=== PATIENT | male | born 1985 | race Two or more races ===

== ENCOUNTER 2016-10-29 00:59 | Inpatient (IN) | payer SELFPAY ==
[2016-10-29] VITALS (7 sets, daily range): BP systolic 105–147; BP diastolic 60–91
[~2016-10-29] VITALS: Ht 160 cm; Wt 73.7 kg
[2016-10-29] MEDS ORDERED: IV NORMAL SALINE 1000ML BAG 1,000 ML IV SCH (01:47)
[2016-10-29 01:58] LABS: BASO % 0 % (0-3); EOS % 2 % (0-3); HEMATOCRIT 46.8 % (39.0-53.0); HEMOGLOBIN 15.6 g/dL (13.0-17.5); LYMPH # 2.6 x10^3/uL (1.0-4.8); LYMPH % 21 % (24-48); MEAN CORPUSCULAR HEMOGLOBIN 30 pg (25-35); MEAN CORPUSCULAR HGB CONC 33 g/dL (31-37); MEAN CORPUSCULAR VOLUME 90 fL (79-100); MONO % 4 % (0-9); NEUT % 72 % (31-73); PLATELET COUNT 170 x10^3/uL (140-400); RED BLOOD COUNT 5.21 x10^6/uL (4.30-5.70); RED CELL DISTRIBUTION WIDTH 13.3 % (11.5-14.5)
[2016-10-29] MEDS ORDERED: fentaNYL PF VIAL 100 MCG/2 ML VIAL IV PRN ×3 (02:00→13:15)
[2016-10-29] MEDS ORDERED: ONDANSETRON PF 4 MG/2 ML VIAL. IV ONE (02:00)
[2016-10-29] MEDS ORDERED: LIDO:MAALOX:DONNATAL 1:1:1 15 ML SINGLE DOSE SWSW ONE (02:00)
[2016-10-29 02:11] LABS: CALCIUM 9.2 mg/dL (8.5-10.1); CREATININE 0.8 mg/dL (0.7-1.3); POTASSIUM 3.4 mmol/L (3.5-5.1)
[2016-10-29 02:15] LABS: ALBUMIN 4.1 g/dL (3.4-5.0); ALBUMIN/GLOBULIN RATIO 1.1 (1.0-1.7); TOTAL BILIRUBIN 0.3 mg/dL (0.2-1.0); TOTAL PROTEIN 7.7 g/dL (6.4-8.2)
[2016-10-29 02:43] LABS: BILIRUBIN,URINE NEGATIVE (NEG); GLUCOSE,URINE NEGATIVE (NEG); NITRITE,URINE NEGATIVE (NEG); PROTEIN,URINE NEGATIVE (NEG-TRACE)
[2016-10-29 02:58] LABS: BACTERIA,URINE 0 /HPF (0-FEW); RBC,URINE 0 /HPF (0-2); SQUAMOUS EPITHELIAL CELL,UR OCC /LPF; WBC,URINE OCC /HPF (0-4)
[2016-10-29] MEDS ORDERED: IOHEXOL 300 MG/ML 75 ML VIAL IV ONE (03:15)
[2016-10-29] MEDS ORDERED: CONTRAST GIVEN MC PRN (03:15)
--- NOTE | 2016-10-29 04:15 | RAD ---
PQRS Compliance Statement: One or more of the following individualized dose reduction techniques were utilized for this examination: 1. Automated exposure control 2. Adjustment of the mA and/or kV according to patient size 3. Use of iterative reconstruction technique CT ABD PELV W/ IV CONTRST ONLY Clinical Indication: abdomen pain with guarding in epigastric and RUQ Comparison: None. Technique: Helical CT imaging of the abdomen and pelvis is performed after 75 cc Omnipaque 300 IV contrast. Oral contrast not given. Findings: There is moderate bilateral lower lobe dependent atelectasis. Cardiac size normal. Liver, spleen, pancreas, adrenal glands, and abdominal aorta are normal. Cholelithiasis. There is trace pericholecystic fluid. No gallbladder wall thickening. Kidneys are normal. Evaluation of bowel may be limited without oral contrast. No obvious abnormality of the stomach. No dilated small bowel. Mild diverticulosis of the descending colon without inflammation. The appendix is normal. Retroaortic left renal vein. Urinary bladder is normal. Prostate size normal. No pelvic free fluid. No acute bone abnormality. IMPRESSION: 1. Cholelithiasis. Trace pericholecystic fluid. Suggest further evaluation with right upper quadrant ultrasound. 2. The appendix is normal. 3. Moderate bilateral lower lobe dependent atelectasis. Electronically signed by: Bolivar De Dios MD (10/29/2016 4:12 AM) [facility]
--- NOTE | 2016-10-29 04:32 | PHYS DOC ---
Past Medical History Past Medical History: No Pertinent History Past Surgical History: No Surgical History Alcohol Use: None Drug Use: None Adult General Chief Complaint Chief Complaint: ABDOMINAL PAIN [facility] HPI Patient is a 31 year old male who presents with sudden onset upper abdominal pain. Patient states that his pain came on very severe and sudden. Patient states that his pain earlier was 10 out of 10. Patient states that his symptoms started approximately 2 hours prior to arrival. Patient states that his pain has been colicky. Agent has not taken any medications to help with his symptoms at this time. Patient denies any fevers. Patient has had associated nausea with his symptoms. Patient denies any significant medical or surgical history. Patient states that he is unable to walk because of the severity of his pain. Patient states that the pain is in his epigastric area and radiates towards his right upper quadrant. Review of Systems Review of Systems Constitutional: Denies fever or chills [] Eyes: Denies change in visual acuity, redness, or eye pain [] HENT: Denies nasal congestion or sore throat [] Respiratory: Denies cough or shortness of breath [] Cardiovascular: No additional information not addressed in HPI [] GI: Denies abdominal pain, nausea, vomiting, bloody stools or diarrhea [] : Denies dysuria or hematuria [] Musculoskeletal: Denies back pain or joint pain [] Integument: Denies rash or skin lesions [] Neurologic: Denies headache, focal weakness or sensory changes [] Endocrine: Denies polyuria or polydipsia [] Current Medications Current Medications Current Medications Medications (Trade) Dose Ordered Sig/Kishor Start Time Stop Time Status Last Admin Dose Admin Fentanyl Citrate (Fentanyl 2ml Vial) 50 mcg PRN Q15MIN PRN 10/29/16 02:00 10/30/16 01:59 10/29/16 01:57 50 MCG Info (Do NOT chart on this entry -- for MONITORING) 1 each PRN DAILY PRN 10/29/16 03:15 10/31/16 03:14 Iohexol (Omnipaque 300 Mg/ml) 75 ml 1X ONCE 10/29/16 03:15 10/29/16 03:16 DC 10/29/16 03:44 75 ML Multi-Ingredient Mouthwash/Gargle (Gi Cocktail Single Dose) 15 ml 1X ONCE 10/29/16 02:00 10/29/16 02:08 DC 10/29/16 01:57 15 ML Ondansetron HCl (Zofran) 4 mg 1X ONCE 10/29/16 02:00 10/29/16 02:08 DC 10/29/16 01:57 4 MG Sodium Chloride 1,000 ml @ 1,000 mls/hr Q1H 10/29/16 01:47 10/29/16 02:46 DC 10/29/16 01:47 1,000 MLS/HR Allergies Allergies Allergies Coded Allergies Type Severity Reaction Last Updated Verified No Known Drug Allergies 10/29/16 No Physical Exam Physical Exam Constitutional: Alert, afebrile, appears in moderate discomfort. [] HENT: Normocephalic, atraumatic, bilateral external ears normal, oropharynx moist, no oral exudates, nose normal. [] Eyes: PERRLA, EOMI, conjunctiva normal, no discharge. [] Neck: Normal range of motion, no tenderness, supple, no stridor. [] Cardiovascular:Heart rate regular rhythm, no murmur [] Lungs & Thorax: Bilateral breath sounds clear to auscultation [] Abdomen: Bowel sounds normal, soft, epigastric and right upper quadrant tenderness to palpation with guarding, no masses, no pulsatile masses. [] Skin: Warm, dry, no erythema, no rash. [] Back: No tenderness, no CVA tenderness. [] Extremities: No tenderness, no cyanosis, no clubbing, ROM intact, no edema. [] Neurologic: Alert and oriented X 3, normal motor function, normal sensory function, no focal deficits noted. [] Current Patient Data Vital Signs Vital Signs Date Time Temp Pulse Resp B/P (MAP) Pulse Ox O2 Delivery O2 Flow Rate FiO2 10/29/16 03:00 50 17 129/69 (89) 100 Nasal Cannula 2.0 10/29/16 01:43 97.3 97.3 Lab Values Laboratory Tests Test 10/29/16 01:28 10/29/16 02:36 White Blood Count 12.0 x10^3/uL (4.0-11.0) H Red Blood Count 5.21 x10^6/uL (4.30-5.70) Hemoglobin 15.6 g/dL (13.0-17.5) Hematocrit 46.8 % (39.0-53.0) Mean Corpuscular Volume 90 fL (79-100) Mean Corpuscular Hemoglobin 30 pg (25-35) Mean Corpuscular Hemoglobin Concent 33 g/dL (31-37) Red Cell Distribution Width 13.3 % (11.5-14.5) Platelet Count 170 x10^3/uL (140-400) Neutrophils (%) (Auto) 72 % (31-73) Lymphocytes (%) (Auto) 21 % (24-48) L Monocytes (%) (Auto) 4 % (0-9) Eosinophils (%) (Auto) 2 % (0-3) Basophils (%) (Auto) 0 % (0-3) Neutrophils # (Auto) 8.6 x10^3uL (1.8-7.7) H Lymphocytes # (Auto) 2.6 x10^3/uL (1.0-4.8) Monocytes # (Auto) 0.5 x10^3/uL (0.0-1.1) Eosinophils # (Auto) 0.2 x10^3/uL (0.0-0.7) Basophils # (Auto) 0.0 x10^3/uL (0.0-0.2) Sodium Level 141 mmol/L (136-145) Potassium Level 3.4 mmol/L (3.5-5.1) L Chloride Level 104 mmol/L (98-107) Carbon Dioxide Level 25 mmol/L (21-32) Anion Gap 12 (6-14) Blood Urea Nitrogen 20 mg/dL (8-26) Creatinine 0.8 mg/dL (0.7-1.3) Estimated GFR (Cockcroft-Gault) 112.0 BUN/Creatinine Ratio 25 (6-20) H Glucose Level 137 mg/dL (70-99) H Calcium Level 9.2 mg/dL (8.5-10.1) Total Bilirubin 0.3 mg/dL (0.2-1.0) Aspartate Amino Transferase (AST) 30 U/L (15-37) Alanine Aminotransferase (ALT) 52 U/L (16-63) Alkaline Phosphatase 88 U/L (46-116) Total Protein 7.7 g/dL (6.4-8.2) Albumin 4.1 g/dL (3.4-5.0) Albumin/Globulin Ratio 1.1 (1.0-1.7) Lipase 149 U/L (73-393) Urine Collection Type Unknown Urine Color Yellow Urine Clarity Clear Urine pH 6.0 Urine Specific Champion >=1.030 Urine Protein Negative mg/dL (NEG-TRACE) Urine Glucose (UA) Negative mg/dL (NEG) Urine Ketones (Stick) Negative mg/dL (NEG) Urine Blood Negative (NEG) Urine Nitrite Negative (NEG) Urine Bilirubin Negative (NEG) Urine Urobilinogen Dipstick 1.0 mg/dL (0.2 mg/dL) Urine Leukocyte Esterase Negative (NEG) Urine RBC 0 /HPF (0-2) Urine WBC Occ /HPF (0-4) Urine Squamous Epithelial Cells Occ /LPF Urine Bacteria 0 /HPF (0-FEW) Urine Mucus Mod /LPF Laboratory Tests 10/29/16 01:28 Laboratory Tests 10/29/16 01:28 EKG EKG Interpreted by me: Heart rate 57, sinus rhythm, normal intervals, normal axis, no acute ST/T-wave abnormalities present [] Radiology/Procedures Radiology/Procedures [facility] [address] [place] [address] IMAGING REPORT Signed PATIENT: SHI SÁNCHEZ ACCOUNT: [id number] : 1985 LOCATION: ER AGE: 31 SEX: M EXAM STATUS: REG ER ORD. PHYSICIAN: SALMA KOEHLER MD REASON: abdominal pain with guarding in epigastric and right upper quadrant PROCEDURE: CT ABD PELV W/ IV CONTRST ONLY PQRS Compliance Statement: One or more of the following individualized dose reduction techniques were utilized for this examination: 1. Automated exposure control 2. Adjustment of the mA and/or kV according to patient size 3. Use of iterative reconstruction technique CT ABD PELV W/ IV CONTRST ONLY Clinical Indication: abdomen pain with guarding in epigastric and RUQ Comparison: None. Technique: Helical CT imaging of the abdomen and pelvis is performed after 75 cc Omnipaque 300 IV contrast. Oral contrast not given. Findings: There is moderate bilateral lower lobe dependent atelectasis. Cardiac size normal. Liver, spleen, pancreas, adrenal glands, and abdominal aorta are normal. Cholelithiasis. There is trace pericholecystic fluid. No gallbladder wall thickening. Kidneys are normal. Evaluation of bowel may be limited without oral contrast. No obvious abnormality of the stomach. No dilated small bowel. Mild diverticulosis of the descending colon without inflammation. The appendix is normal. Retroaortic left renal vein. Urinary bladder is normal. Prostate size normal. No pelvic free fluid. No acute bone abnormality. IMPRESSION: 1. Cholelithiasis. Trace pericholecystic fluid. Suggest further evaluation with right upper quadrant ultrasound. 2. The appendix is normal. 3. Moderate bilateral lower lobe dependent atelectasis. Electronically signed by: Bolivar De Dios MD (10/29/2016 4:12 AM) [facility] DICTATED and SIGNED BY: BOLIVAR DE DIOS MD DATE: 10/29/16406 CC: SALMA KOEHLER MD; NO PCP ~ [] Course & Med Decision Making Course & Med Decision Making Pertinent Labs and Imaging studies reviewed. (See chart for details) Patient has CT evidence of acute cholecystitis. I spoke with Dr. Telles of general surgery. She asked that the patient be admitted to her service and she will see the patient later today with expectant need for laparoscopic cholecystectomy. Spoke with patient regarding treatment plan and he is in agreement at this time. Dragon Disclaimer Dragon Disclaimer This electronic medical record was generated, in whole or in part, using a voice recognition dictation system. Departure Departure Impression: Primary Impression: Acute cholecystitis Disposition: ADMITTED INPATIENT Admitting Physician: Other Condition: STABLE Referrals: NO PCP (PCP) SALMA KOEHLER MD Oct 29, 2016 04:32
[2016-10-29] MEDS ORDERED: ONDANSETRON PF 4 MG/2 ML VIAL. IV PRN ×2 (04:45→13:15)
[2016-10-29] MEDS: IV NORMAL SALINE 1000ML BAG 1,000 ML IV SCH ×2 (05:58→16:49)
[2016-10-29] MEDS ORDERED: ONDANSETRON PF 4 MG/2 ML VIAL. ONE (08:37)
[2016-10-29] MEDS ORDERED: DEXAMETHASONE SOD PHOS 20 MG/5 ML VIAL. ONE (08:37)
[2016-10-29] MEDS ORDERED: MIDAZOLAM HCL/PF 2 MG/2 ML VIAL. ONE (08:37)
[2016-10-29] MEDS ORDERED: LIDOCAINE 2% PF Vial for OR 5 ML VIAL. ONE (08:37)
[2016-10-29] MEDS ORDERED: FAMOTIDINE 20 MG/2 ML VIAL ONE (08:37)
[2016-10-29] MEDS ORDERED: fentaNYL PF VIAL 100 MCG/2 ML VIAL ONE (08:37)
[2016-10-29] MEDS ORDERED: ROCURONIUM 50 MG/5 ML VIAL. ONE (08:37)
[2016-10-29] MEDS ORDERED: IOHEXOL 300 MG/ML 50 ML VIAL. ONE (09:55)
[2016-10-29] MEDS ORDERED: BUPIVACAINE-EPI 0.5%-1:200000 50 ML VIAL. ONE (09:55)
[2016-10-29] MEDS ORDERED: SURGICEL HEMOSTAT 4X8 EACH. ONE (09:55)
--- NOTE | 2016-10-29 10:44 | EKG ---
[facility] [address] [place] [address] Test Date: 2016-10-29 Test Time: 01:36:01 Pat Name: SHI SÁNCHEZ Department: Room: Gender: M Acquisition Consultant: : 1985 Requested By: SALMA KOEHLER Order Number: [id number] Reading MD: Measurements Intervals [place] Rate: 57 P: 32 NM: 128 QRS: 28 QRSD: 90 T: 10 QT: 402 QTc: 394 Interpretive Statements SINUS RHYTHM INCOMPLETE RIGHT BUNDLE BRANCH BLOCK QRS(T) CONTOUR ABNORMALITY CONSIDER ANTEROLATERAL MYOCARDIAL DAMAGE POSSIBLY ABNORMAL ECG RI6.01 No previous ECG available for comparison
--- NOTE | 2016-10-29 11:30 | PDOC1 ---
H & P H&P cc: abd pain HPI 31 yo male presents with epigastric and ruq pain. onset yest. relieved with narcotics. associated with n/v. pain was constant and severe. us + cholelithiasis PMH denies PSH denies SH nonsmoker, no etoh. 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 psych no depression or anxeity neuro no headaches or seizures gi see hpi PE afeb alert, no distress eyes pupils round, reactive. no icterus ent normocephalic, mucous membranes moist neck supple, no lymphadenopathy, nontender cv: 2+ radial pulses bilaterally. no pedal edema. resp nonlabored, chest wall nontender to palp gi abd soft distended mild epigastric tenderness neuro: alert/oriented x 3. no resting tremor psych mood normal, calm. affect appropriate labs noted a/p acute cholecystitis. to OR for lap win, ioc, poss open. pt was able to converse in Tunisian without diff. discussed nonoperative tx but recommended against it. he desires to proceed with surgery. risks of bleeding, infection, injury to hollow viscus/vasculature/bile duct, retained cbd stone, bile leak, post op diarrhea and remote risks of ami/cva/dvt/pe/pneumonia and d/w him. JUANITO KATHLEEN MD Oct 29, 2016 11:30
[2016-10-29] MEDS ORDERED: OXYC-323 PO (11:33)
[2016-10-29] MEDS ORDERED: NEOSTIGMINE METHYLSULFATE 5 MG/5 ML SYRINGE. ONE (12:15)
[2016-10-29] MEDS ORDERED: GLYCOPYRROLATE 1 MG/5 ML VIAL. ONE (12:15)
--- NOTE | 2016-10-29 12:22 | RAD ---
Indication operative cholangiogram. Protocol study. Assess for potential complication. Assess for potential choledocholithiasis. For members of the Department of surgery fluoroscopy was provided. 2. Films were obtained with the C-arm. Fluoroscopy time associated with the imaging has been reported as 10 seconds. The common bile duct appears unremarkable. No filling defects are seen. Contrast flows unremarkably into the duodenum. IMPRESSION: Normal operative cholangiogram
--- NOTE | 2016-10-29 12:32 | PDOC4 ---
OPERATIVE NOTE: DATE OF SURGERY: 10/29/2016 PREOPERATIVE DIAGNOSIS: cholecystitis POSTOPERATIVE DIAGNOSIS: same PROCEDURE: Laparoscopic cholecystectomy with intraoperative cholangiogram. SURGEON: Asha Kathleen MD ANESTHESIA: General. ESTIMATED BLOOD LOSS: 30 mL. INTRAVENOUS FLUIDS: 1000 mL. INDICATIONS: The patient presents with cholecystitis FINDINGS: Intraoperative cholangiogram is normal. PROCEDURE IN DETAIL: After informed consent was obtained, the patient was taken to the operating room and placed in the supine position. After adequate induction of general anesthesia, an umbilical skin incision was made with a scalpel, subcutaneous tissues with a hemostat. [facility] was used to grab the fascia and lift it anteriorly. Veress was used to gain access to the peritoneal cavity. Low opening pressures confirmed intraperitoneal placement of Veress. Pneumoperitoneum to 15 mmHg was established followed by placement of 5 mm port. A 5-mm 30-degree lens was inserted, which revealed good port placement. No evidence of entry trauma. he was placed head up, rotated towards his left. Three additional ports were placed under direct vision. The sites were injected with local anesthetic. Skin incisions were made and then an epigastric 11 mm and two 5 mm right lateral ports were placed. The fundus of the gallbladder was retracted over liver and slightly towards the right. Infundibulum was retracted towards the right and towards her toes to open the triangle of Calot. The leading peritoneal edge was scored with cautery medially and laterally and carried back towards the liver. [place] dissector was then used to dissect out the triangle of Calot. At the level of the infundibulum and the completion of dissection, 2 structures were seen leading directly to the gallbladder, one was a cystic artery and one was a cystic duct. The gallbladder had been dissected away from the cystic plate. The liver could be seen behind the gallbladder and base of the gallbladder was free of extraneous tissue. Two clips were placed on cystic artery proximally, one distally and a clip was placed on cystic duct adjacent to the gallbladder. Ductotomy was made with scissors. Intraoperative cholangiogram showed free flow of contrast through the cystic duct, common bile duct, common hepatic, left and right hepatics, intrahepatic radicles, free flow of contrast into the duodenum with no filling defects. The catheter was removed, the cholangiogram was interpreted as normal. Three clips were placed on the cystic duct distal to the ductotomy. Ductotomy completed with scissors. Cystic artery transected sharply. The gallbladder was removed from the bed of the liver with cautery. There was a small vessel in the interface between the gb and the liver that was terminating on the gb. it was clipped twice proximally and once distally and divided sharply. The gb was placed in laparoscopic bag and brought out through the epigastric incision. The right upper quadrant was irrigated. Irrigant returned clear. There was no bleeding or bile leakage noted. Fascial closure device was used to close the fascia at the epigastric incision with an 0 Vicryl suture. The ports removed under direct vision. They were hemostatic. Pneumoperitoneum was desufflated. Skin incisions were closed with 4-0 Monocryl in subcuticular fashion. Sterile dressings were placed. Of note, prior to removing the ports, the one final look at the liver bed revealed it to be hemostatic and without bile leakage. After removal of the ports, the incisions were closed with 4-0 Monocryl in subcuticular fashion. Additional local was injected. Sterile dressings were placed. he tolerated the procedure well. There were no apparent complications. he is in the process of being transferred in stable condition to the recovery room. ASHA KATHLEEN MD Oct 29, 2016 12:32
[2016-10-29] MEDS ORDERED: PROCHLORPERAZINE 10 MG/2 ML VIAL. ONE (12:34)
[2016-10-29] MEDS ORDERED: oxyCODONE/APAP 5/325 1 TAB TABLET PO PRN (12:45)
[2016-10-29] MEDS: fentaNYL PF VIAL 100 MCG/2 ML VIAL IV PRN ×2 (13:00→13:18)
[2016-10-29] MEDS ORDERED: IV RINGERS,LACTATED 1000ML 1,000 ML IV SCH (13:07)
[2016-10-29] MEDS ORDERED: LIDOCAINE 1% 1 ML SYRINGE. ID PRN (13:15)
[2016-10-29] MEDS ORDERED: MORPHINE SULFATE 2 MG/ML DISP.SYRIN. IV PRN (13:15)
[2016-10-29] MEDS ORDERED: PROCHLORPERAZINE 10 MG/2 ML VIAL. IV PRN (13:15)
[2016-10-29] MEDS ORDERED: HYDROmorphone 2 MG/ML VIAL IV PRN (13:15)
--- NOTE | 2016-10-30 03:51 | ACF ---
Admission Forms Criteria GALLBLADDER OR BILE DUCT INFLAMMATION OR STONE Clinical Indications for Admission to Inpatient Care ( Place 'X' for any and all applicable criteria): Admission is indicated for patients with ANY ONE of the following(1)(2)(3)(4)(5) : [X]I. Acute cholecystitis as indicated by ALL of the following: [X]a) Right upper quadrant pain, mass, or tenderness [X]b) Systemic signs of inflammation indicated by ANY ONE of the following: [ ]i) Fever [ ]ii) C-reactive protein level greater than 10 mg/L (95 nmol/L) [X]iii) White blood cell count greater than 10,000/mm3 (10 x109/L) or less than 4000/mm3 (4 x109/L) [ ]II. Inpatient admission required rather than observation care (Also use Gallbladder or Bile Duct Inflammation or Stone: Observation Care as appropriate) because of ANY ONE of the following: [ ]a) Common bile duct obstruction diagnosed [ ]b) Vomiting that is severe or persistent [ ]c) Severe pain requiring acute inpatient management [ ]d) Signs of intestinal obstruction or peritonitis [A] [ ]e) Severe electrolyte abnormalities requiring inpatient care [ ]f) Absent bowel sounds with complete ileus(8) [ ]g) Hemodynamic instability [ ]h) High fever or infection requiring inpatient admission as indicated by ANY ONE of the following (9): [ ]1) Appropriate outpatient or observation care antimicrobial Treatment. unavailable, not effective, or not feasible [ ]2) Temperature greater than 104.9 degrees F (40.5 degrees C) (oral) [ ]3) Temperature greater than 103.1 degrees F (39.5 degrees C) (oral) or less than 96.8 degrees F (36 degrees C) (rectal) that does not respond to all emergency treatment measures [ ]4) Documented bacteremia [ ]i) IV fluid to replace significant ongoing losses (greater than 3 L/m2 per day) [ ]j) Percutaneous or open drainage (eg, abscess, biliary tract) procedures [ ]k) Immediate inpatient surgery [ ]l) Other condition, treatment or monitoring requiring inpatient admission [ ]III. Acute cholangitis as indicated by ALL of the following(9)(10): [ ]a) Systemic signs of inflammation indicated by ANY ONE of the following: [ ]i) Fever [ ]ii) C-reactive protein level greater than 10 mg/L (95 nmol /L) [ ]iii) White blood cell count greater than 10,000/mm3 (10 x109/L) or less than 4000/mm3 (4 x109/L) [ ]b) Evidence of common bile duct disease indicated by ANY ONE of the following: [ ]i) Total serum bilirubin level greater than or equal to 2 mg/dL (34 micromoles/L) [ ]ii) Liver function test (alkaline phosphatase (ALP), r- glutamyltransferase (GGT), aspartate aminotransferase (AST), or alanine aminotransferase (ALT)) greater than 1.5 times the upper limit of normal[B] [ ]iii) Hepatobiliary imaging showing biliary dilatation or evidence of etiology (eg, stricture, stone, previously placed stent) Extended stay beyond goal length of stay may be needed for (1)(2)): [ ]a) Bacteremia or Hemodynamic instability [ ]b) Cholecystectomy [ ]c) Other surgical procedure(24) [ ]d) Percutaneous or endoscopic ultrasound-guided cholecystostomy The original [facility] content created by [facility] has been revised. The portions of the content which have been revised are identified through the use of italic text or in bold, and [facility] has neither reviewed nor approved the modified material. All other unmodified content is copyright [facility]. Please see references footnoted in the original [facility] edition 2016 Admission Criteria Met?: Yes SPENCER NOBLES Oct 30, 2016 03:51
== END 2016-10-29 20:20 | disposition home or self-care (01) | DRG 419 ==
LOC: ER 00:59 → 4 NORTH 04:22
PROVIDERS: ADMIT Surgery; ATTEND Surgery
PROC: BF131ZZ Fluoroscopy of Gallbladder and Bile Ducts using Low Osmolar Contrast (ICD-10-PCS; 2016-10-29)
PROC: 0FT44ZZ Resection of Gallbladder, Percutaneous Endoscopic Approach (ICD-10-PCS; principal; 2016-10-29 10:00)
DX: K80.00 Calculus of gallbladder with acute cholecystitis without obstruction (principal); R26.2 Difficulty in walking, not elsewhere classified
CPT/HCPCS: 36415; 74177; 74300; 80053; 81001; 83690; 85027; 93005; 96361; 96374; 96375; J0690; J0780; J1100; J2001; J2250; J2405; J2710; J3010; J3490; J7030; J7120; Q9967; S0028; 99285-25